=== PATIENT | male | born 1990 | race African-American/Black ===

== ENCOUNTER 2016-11-18 13:00 | Emergency (ER) | payer OTHER ==
[~2016-11-18] VITALS: Ht 195.6 cm; Wt 90.0 kg
[2016-11-18 13:06] VITALS: Ht 195.6 cm; Wt 90.0 kg
== END 2016-11-18 16:07 | disposition left against medical advice (07) ==
LOC: FTE 13:00
DX: Z53.21 Procedure and treatment not carried out due to patient leaving prior to being seen by health care provider (principal)

== ENCOUNTER 2017-05-21 16:53 | Emergency (ER) | payer OTHER ==
[~2017-05-21] VITALS: Ht 198.1 cm
[2017-05-21 16:55] VITALS: Ht 198.1 cm
[2017-05-21] MEDS ORDERED: IBUP-1542 PO (17:50)
[2017-05-21] MEDS ORDERED: CYCL-319 PO (17:50)
--- NOTE | 2017-05-21 20:56 | ERD ---
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 Patient states the pain is 8 out of 10 with movement. Patient denies taking any medications for this. He denies any numbness or tingling. ROS All systems reviewed and are negative except as per history of present illness. Medications Home Meds Active Scripts Cyclobenzaprine Hcl* (Cyclobenzaprine Hcl*) 10 Mg Tablet, 10 MG PO TID, #15 TAB Prov:DEMOND ADAME PA-C 05/21/17 Ibuprofen* (Ibuprofen*) 600 Mg Tablet, 600 MG PO Q6H Y for PAIN AND OR ELEVATED TEMP, #30 TAB Prov:DEMOND ADAME PA-C 05/21/17 Allergies Allergies: Coded Allergies: No Known Drug Allergies (Verified Allergy, 09/19/12) PMhx/Soc Medical and Surgical Hx: pt denies Medical Hx, pt denies Surgical Hx History of Surgery: No Anesthesia Reaction: No Hx Neurological Disorder: No Hx Respiratory Disorders: No Hx Cardiac Disorders: No Hx Psychiatric Problems: No Hx Miscellaneous Medical Probl: No Hx Alcohol Use: No Hx Substance Use: Yes (marijuana) Hx Tobacco Use: No Smoking Status: Never smoker Physical Exam Vitals Vital Signs Date Time Temp Pulse Resp B/P Pulse Ox O2 Delivery O2 Flow Rate FiO2 05/21/17 16:55 98.4 69 16 118/67 97 Physical Exam GENERAL: WD/WN, in no apparent distress, non-toxic appearing HENT: NC/AT EYES: Conjunctiva normal NECK: Supple, no masses felt, tender to palpation of the paraspinal muscle, non- tender to palpation on cervical spine midline, full range of motion PULM: Normal labored breathing CV: Good capillary refill GI: Non-distended, no guarding BACK: no deformities noted, normal spinal curvature EXT: No clubbing, cyanosis, or edema NEURO: Moves on all fours, sensation intact, normal gait SKIN: intact PSYCH: Normal mood Procedures/MDM 26-year-old sent to the emergency department complaining of left lateral neck pain status post lifting a heavy patient at work about 1 week prior to being seen. This is likely a strain. There was no evidence of vertebral fracture or subluxation. Patient has full range of motion of his neck. He is tender to palpation in the paraspinal muscle of the left side. Patient is neurovascular intact to be discharged home to follow with primary care physician. Prescription for ibuprofen and Flexeril was provided. Discussed return to ER for worsening signs or symptoms. He understands and agrees with this plan Departure Diagnosis: Primary Impression: Neck pain Condition: Stable Patient Instructions: Neck Pain, No Trauma Additional Instructions: FOLLOW UP WITH YOUR PRIMARY CARE PHYSICIAN TOMORROW.Return to this facility if you are not improving as expected. Take all medicines as directed. You have been given a medicine which may cause drowsiness.DO NOT DRIVE OR OPERATE DANGEROUS MACHINERY while taking this medicine! DEMOND ADAME PA-C May 21, 2017 20:56
== END 2017-05-21 18:30 | disposition home or self-care (01) ==
LOC: FTE 16:53
DX: M54.2 Cervicalgia (principal)
CPT/HCPCS: 99283

== ENCOUNTER 2017-07-24 16:19 | Emergency (ER) | payer OTHER ==
[~2017-07-24] VITALS: Wt 93.0 kg
[~2017-07-24 16:19] MED LIST: CYCL-319 PO; IBUP-1542 PO
[2017-07-24] MEDS ORDERED: CETI10CA PO (17:32)
[2017-07-24] MEDS ORDERED: BENZ100C70 PO (17:32)
[2017-07-24] MEDS ORDERED: IBUP-1542 PO (17:32)
[2017-07-24] MEDS ORDERED: FLUT9.9S NASAL (17:32)
--- NOTE | 2017-07-24 17:49 | ERD ---
ER Documentation Chief Complaint Chief Complaint cough, sinus congestion, eyes watery, frontal mahmood HPI 27-year-old male presents with a cough, congestion, watery eyes and frontal headache for the past 1-2 days. He reports tactile fevers and he has been taking DayQuil for his symptoms. The patient's pain is pressure-like in the frontal aspect. The cough is been dry, denies hemoptysis, chest pain or shortness of breath. He denies recent travel. ROS All systems reviewed and are negative except as per history of present illness. Medications Home Meds Active Scripts Cetirizine Hcl* (Zyrtec*) 10 Mg Capsule, 10 MG PO DAILY, #10 TAB.CHEW Prov:EDMAR CARCAMO PA-C 07/24/17 Fluticasone Propionate (Flonase Allergy Relief) 9.9 Ml [place].susp, 1 SPRAY NASAL BID, #1 BOTTLE TO EACH NOSTRIL Prov:EDMAR CARCAMO PA-C 07/24/17 Ibuprofen* (Motrin*) 600 Mg Tab, 600 MG PO Q6, #30 TAB Prov:EDMAR CARCAMO PA-C 07/24/17 Benzonatate* (Tessalon Perle*) 100 Mg Capsule, 100 MG PO Q8H Y for COUGH, #30 CAP Prov:EDMAR CARCAMO PA-C 07/24/17 Cyclobenzaprine Hcl* (Cyclobenzaprine Hcl*) 10 Mg Tablet, 10 MG PO TID, #15 TAB Prov:DEMOND ADAME PA-C 05/21/17 Ibuprofen* (Ibuprofen*) 600 Mg Tablet, 600 MG PO Q6H Y for PAIN AND OR ELEVATED TEMP, #30 TAB Prov:DEMOND ADAME PA-C 05/21/17 Allergies Allergies: Coded Allergies: No Known Drug Allergies (Verified Allergy, 09/19/12) PMhx/Soc History of Surgery: No Anesthesia Reaction: No Hx Neurological Disorder: No Hx Respiratory Disorders: No Hx Cardiac Disorders: No Hx Psychiatric Problems: No Hx Miscellaneous Medical Probl: No Hx Alcohol Use: No Hx Substance Use: Yes (marijuana) Hx Tobacco Use: No Physical Exam Vitals Vital Signs Date Time Temp Pulse Resp B/P Pulse Ox O2 Delivery O2 Flow Rate FiO2 07/24/17 16:43 98.5 75 20 134/82 98 Physical Exam General: Well-developed, well-nourished. The patient appears in no acute distress. HEENT: Head is normocephalic, atraumatic. No scleral icterus. TMs are normal, oropharynx is sinuses are nontender. Neck: Supple. Nontender. Lungs: Clear to auscultation. Normal air movement. Heart: Regular rate and rhythm. S1 and S2 are normal. No murmurs, gallops, or rubs. Abdomen: Nondistended. Extremities: No clubbing or cyanosis. Moving extremities x 4. No weakness. Neurologic: Alert and oriented 3. No focal deficits. Normal speech and gait. Skin: Normal turgor. No rash or lesions. Procedures/MDM The patient is a 27-year-old male who comes in with an acute upper respiratory infection, presumed viral. The patient has a differential diagnosis of a viral upper respiratory infection, bacterial upper respiratory infection, bronchitis, pneumonia, pharyngitis, laryngitis, epiglottitis, croup, pneumonia. Patient has a normal pulmonary examination, clear breath sounds, normal pulse oximetry, with no corrective measures needed at this time. Fluids, rest, antipyretics were encouraged. Departure Diagnosis: Primary Impression: Cough Condition: Good Patient Instructions: Uri, Viral, No Abx (Adult) EDMAR CARCAMO PA-C Jul 24, 2017 17:49
== END 2017-07-24 17:54 | disposition home or self-care (01) ==
LOC: FTE 16:19
DX: R05 Cough (principal)
CPT/HCPCS: 99283

== ENCOUNTER 2017-11-14 14:46 | Emergency (ER) | END 2017-11-14 16:44 | disposition home or self-care (01) ==

== ENCOUNTER 2017-12-10 12:49 | Emergency (ER) | END 2017-12-10 14:17 | disposition home or self-care (01) ==

== ENCOUNTER 2018-01-07 16:24 | Emergency (ER) | END 2018-01-07 16:55 | disposition home or self-care (01) ==

== ENCOUNTER 2018-09-17 16:37 | Emergency (ER) | payer SELFPAY ==
[~2018-09-17] VITALS: Ht 167.6 cm; Wt 98.2 kg
[~2018-09-17 16:37] MED LIST changes: +ALBU18HF INHALATION; +BEN25 PO; +BENZ-6 PO; +CETI10CA PO; -CYCL-319 PO; +CYCL10TA7 PO; +FLUT9.9S NASAL; +KETO5DRO79 BOTH EYES; +LORA-186 PO; +LORA1TAB54 PO
[2018-09-17 17:01] VITALS: Ht 167.6 cm; Wt 98.2 kg
== END 2018-09-17 18:56 | disposition left against medical advice (07) ==
LOC: FTE 16:37
DX: Z53.21 Procedure and treatment not carried out due to patient leaving prior to being seen by health care provider (principal)

== ENCOUNTER 2018-09-20 22:15 | Emergency (ER) | payer OTHER ==
[~2018-09-20] VITALS: Wt 96.2 kg
[2018-09-21] MEDS ORDERED: CEPH-443 PO (01:51)
[2018-09-21] MEDS ORDERED: SULF1TAB31 PO (01:51)
[2018-09-21 02:11] VITALS: BP 124/84; PULSE 108; RESP 18
--- NOTE | 2018-09-21 02:17 | ERD ---
ER Documentation Chief Complaint Chief Complaint RLQ PAIN WITH PAINFUL "LUMP" NOTED AFTER STRENUOUS ACTIVITY HPI 28-year-old male presenting with a lump to his right inguinal region times 3 days. He states is mild pain but nothing severe. Normal urination bowel movement. No fevers. Denies dysuria denies history of STDs. No discharge from the penis. Has not taken medications for symptoms. Denies abdominal pain. Denies medical problems. NKDA. Surgical history denies. Social history denies. ROS All systems reviewed and are negative except as per history of present illness. Medications Home Meds Active Scripts Cephalexin* (Keflex*) 500 Mg Capsule, 500 MG PO QID for 7 Days, #28 CAP Prov:PENNY RAMÍREZ PA-C 09/21/18 Sulfamethoxazole/Trimethoprim* (Bactrim Ds* Tablet) 1 Each Tablet, 1 TAB PO BID, #14 TAB Prov:PENNY RAMÍREZ PA-C 09/21/18 Diphenhydramine Hcl* (Benadryl*) 25 Mg Cap, 25 MG PO Q6, #30 CAP Prov:DAVID JACOB PA-C 01/07/18 Loratadine* (Claritin*) 10 Mg Tablet, 10 MG PO DAILY, #30 TAB Prov:DAVID JACOB PA-C 01/07/18 Fluticasone Propionate (Flonase Allergy Relief) 9.9 Ml [place].susp, 1 SPRAY NASAL BID, #1 BOTTLE TO EACH NOSTRIL Prov:EDMAR CARCAMO PA-C 12/10/17 Cetirizine Hcl* (Zyrtec*) 10 Mg Capsule, 10 MG PO DAILY, #30 TAB Prov:EDMAR CARCAMO PA-C 12/10/17 Ketorolac Tromethamine Oph (Ketorolac Tromethamine Oph) 0.4%-5 Ml Opht Drops, 1 DROP BOTH EYES QID, #1 EA Prov:EDMAR CARCAMO PA-C 12/10/17 Albuterol Sulfate* (Ventolin HFA*) 18 Gm Hfa.aer.ad, 2 PUFF INHALATION Q4H, #1 INHALER Prov:AYUSH,CARSON 11/14/17 Fluticasone Propionate (Flonase Allergy Relief) 9.9 Ml [place].susp, 1 SPRAY NASAL DAILY, #1 BOTTLE TO EACH NOSTRIL Prov:AYUSH,CARSON 11/14/17 Fluticasone Propionate (Flonase Allergy Relief) 9.9 Ml [place].susp, 1 SPRAY NASAL BID, #1 BOTTLE TO EACH NOSTRIL Prov:AYUSH,CARSON 11/14/17 Loratadine/Pseudoephedrine* (Claritin-D* 12 Hr) 5-120 Mg Tab.er.12h, 1 TAB PO Qday , #15 TAB.SA Prov:AYUSH,CARSON 11/14/17 Cetirizine Hcl* (Zyrtec*) 10 Mg Capsule, 10 MG PO DAILY, #10 TAB.CHEW Prov:EDMAR CARCAMO PA-C 07/24/17 Fluticasone Propionate (Flonase Allergy Relief) 9.9 Ml [place].susp, 1 SPRAY NASAL BID, #1 BOTTLE TO EACH NOSTRIL Prov:EDMAR CARCAMO PA-C 07/24/17 Ibuprofen* (Motrin*) 600 Mg Tab, 600 MG PO Q6, #30 TAB Prov:EDMAR CARCAMO PA-C 07/24/17 Benzonatate* (Tessalon Perle*) 100 Mg Capsule, 100 MG PO Q8H PRN for COUGH, #30 CAP Prov:EDMAR CARCAMO PA-C 07/24/17 Cyclobenzaprine Hcl* (Cyclobenzaprine Hcl*) 10 Mg Tablet, 10 MG PO TID, #15 TAB Prov:DEMOND ADAME PA-C 05/21/17 Ibuprofen* (Ibuprofen*) 600 Mg Tablet, 600 MG PO Q6H PRN for PAIN AND OR ELEVATED TEMP, #30 TAB Prov:DEMOND ADAME PA-C 05/21/17 Allergies Allergies: Coded Allergies: No Known Drug Allergies (Verified Allergy, 09/19/12) PMhx/Soc Medical and Surgical Hx: pt denies Medical Hx, pt denies Surgical Hx History of Surgery: No Anesthesia Reaction: No Hx Neurological Disorder: No Hx Respiratory Disorders: No Hx Cardiac Disorders: No Hx Psychiatric Problems: No Hx Miscellaneous Medical Probl: No Hx Alcohol Use: Yes (socially) Hx Substance Use: Yes (marijuana) Hx Tobacco Use: No Smoking Status: Never smoker FmHx Family History: No diabetes, No coronary disease, No other Physical Exam Vitals Vital Signs Date Temp Pulse Resp B/P (MAP) Pulse Ox O2 O2 Flow FiO2 Time Delivery Rate 09/21/18 98.6 108 18 124/84 99 Room Air 02:11 (97) 09/20/18 97.0 92 18 172/81 98 22:20 (111) Physical Exam GENERAL: The patient is well-appearing, well-nourished, in no acute distress CHEST: Clear to auscultation bilaterally. There are no rales, wheezes or rhonchi. HEART: Regular rate and rhythm. No murmurs, clicks, rubs or gallops. No S3 or S4. ABDOMEN:Soft, nontender and nondistended. Good bowel sounds. No rebound or guarding. No gross peritonitis. No gross organomegaly or masses. No Mckeon sign or McBurney point tenderness. SKIN: Indurated mass noted to right inguinal region with no fluctuance. No lymphatic streaking. Results 24 hrs Laboratory Tests Test 09/21/18 01:02 Bedside Urine pH (LAB) 7.0 Bedside Urine Protein (LAB) Trace Bedside Urine Glucose (UA) Negative Bedside Urine Ketones (LAB) Negative Bedside Urine Blood Trace-intact Bedside Urine Nitrite (LAB) Negative Bedside Urine Leukocyte Esterase (L Negative Procedures/MDM ER course: STD screening sent. MDM: 28-year-old male presenting with inguinal lymphadenopathy. Patient likely has reactive lymphadenopathy however will treat with antibiotics to prophylax against infection. I have low suspicion for abscess formation. Patient is discharged with antibiotics and recommended to apply warm compresses. He is told to return in 2 days after applying warm compresses as incision and drainage may be required. Patient is told if symptoms change or worsen prior to the 2 days to return to ER sooner. Patient is discharged with strict ER precautions and also recommended to follow-up with primary care. All questions answered at discharge Departure Diagnosis: Primary Impression: Lymphadenopathy Condition: Stable Patient Instructions: When Your Child Has Swollen Lymph Nodes Referrals: [facility] YOU HAVE RECEIVED A MEDICAL SCREENING EXAM AND THE RESULTS INDICATE THAT YOU DO NOT HAVE A CONDITION THAT REQUIRES URGENT TREATMENT IN THE EMERGENCY DEPARTMENT. FURTHER EVALUATION AND TREATMENT OF YOUR CONDITION CAN WAIT UNTIL YOU ARE SEEN IN YOUR DOCTORS OFFICE WITHIN THE NEXT 1-2 DAYS. IT IS YOUR RESPONSIBILITY TO MAKE AN APPOINTMENT FOR FOLOW-UP CARE. IF YOU HAVE A PRIMARY DOCTOR --you should call your primary doctor and schedule an appointment IF YOU DO NOT HAVE A PRIMARY DOCTOR YOU CAN CALL OUR PHYSICIAN REFERRAL HOTLINE AT IF YOU CAN NOT AFFORD TO SEE A PHYSICIAN YOU CAN CHOSE FROM THE FOLLOWING [facility] CL[facility]ICS [facility] [address] [facility] [address] [facility] [address] [facility] [address] [facility] [address] [facility] [address] [facility]. [address] Additional Instructions: FOLLOW UP WITH YOUR PRIMARY CARE PHYSICIAN TOMORROW.Return to this facility if you are not improving as expected. PENNY RAMÍREZ PA-C Sep 21, 2018 02:17
== END 2018-09-21 02:11 | disposition home or self-care (01) ==
LOC: FTE 22:15
DX: R59.0 Localized enlarged lymph nodes (principal)
CPT/HCPCS: 81003; 87591; Z7502; 99283

== ENCOUNTER 2018-12-27 11:33 | Emergency (ER) | payer OTHER ==
[~2018-12-27] VITALS: Ht 195.6 cm; Wt 101.0 kg
[~2018-12-27 11:33] MED LIST changes: +CEPH-443 PO; +SULF1TAB31 PO
[2018-12-27 12:24] VITALS: BP 125/81; PULSE 56; RESP 16; Ht 195.6 cm; Wt 101.0 kg
[2018-12-27] MEDS ORDERED: CEPH-443 PO (12:49)
--- NOTE | 2018-12-27 12:59 | ERD ---
ER Documentation Chief Complaint Chief Complaint RT FOOT PAIN WITH SWELLING HPI 28-year-old male presenting with pain to his right foot. Patient was walking yesterday and noticed he site of erythema and tenderness between his great toe and second toe of the right foot. Denies other medical problems. NKDA. Surgic al history denies. Social history denies ROS All systems reviewed and are negative except as per history of present illness. Medications Home Meds Active Scripts Cephalexin* (Keflex*) 500 Mg Capsule, 500 MG PO QID for 7 Days, CAP Prov:PENNY RAMÍREZ PA-C 12/27/18 Cephalexin* (Keflex*) 500 Mg Capsule, 500 MG PO QID for 7 Days, #28 CAP Prov:PENNY RAMÍREZ PA-C 09/21/18 Sulfamethoxazole/Trimethoprim* (Bactrim Ds* Tablet) 1 Each Tablet, 1 TAB PO BID, #14 TAB Prov:PENNY RAMÍREZ PA-C 09/21/18 Diphenhydramine Hcl* (Benadryl*) 25 Mg Cap, 25 MG PO Q6, #30 CAP Prov:DAVID JACOB PA-C 01/07/18 Loratadine* (Claritin*) 10 Mg Tablet, 10 MG PO DAILY, #30 TAB Prov:DAVID JACOB PA-C 01/07/18 Fluticasone Propionate (Flonase Allergy Relief) 9.9 Ml [place].susp, 1 SPRAY NASAL BID, #1 BOTTLE TO EACH NOSTRIL Prov:EDMAR CARCAMO PA-C 12/10/17 Cetirizine Hcl* (Zyrtec*) 10 Mg Capsule, 10 MG PO DAILY, #30 TAB Prov:EDMAR CARCAMO PA-C 12/10/17 Ketorolac Tromethamine Oph (Ketorolac Tromethamine Oph) 0.4%-5 Ml Opht Drops, 1 DROP BOTH EYES QID, #1 EA Prov:EDMAR CARCAMO PA-C 12/10/17 Albuterol Sulfate* (Ventolin HFA*) 18 Gm Hfa.aer.ad, 2 PUFF INHALATION Q4H, #1 INHALER Prov:AYUSHKATRINACARSON 11/14/17 Fluticasone Propionate (Flonase Allergy Relief) 9.9 Ml [place].susp, 1 SPRAY NASAL DAILY, #1 BOTTLE TO EACH NOSTRIL Prov:AYUSH,CARSON 11/14/17 Fluticasone Propionate (Flonase Allergy Relief) 9.9 Ml [place].susp, 1 SPRAY NASAL BID, #1 BOTTLE TO EACH NOSTRIL Prov:AYUSH,CARSON 11/14/17 Loratadine/Pseudoephedrine* (Claritin-D* 12 Hr) 5-120 Mg Tab.er.12h, 1 TAB PO Qday , #15 TAB.SA Prov:AYUSH,CARSON 11/14/17 Cetirizine Hcl* (Zyrtec*) 10 Mg Capsule, 10 MG PO DAILY, #10 TAB.CHEW Prov:EDMAR CARCAMO PA-C 07/24/17 Fluticasone Propionate (Flonase Allergy Relief) 9.9 Ml [place].susp, 1 SPRAY NASAL BID, #1 BOTTLE TO EACH NOSTRIL Prov:EDMAR CARCAMO PA-C 07/24/17 Ibuprofen* (Motrin*) 600 Mg Tab, 600 MG PO Q6, #30 TAB Prov:EDMAR CARCAMO PA-C 07/24/17 Benzonatate* (Tessalon Perle*) 100 Mg Capsule, 100 MG PO Q8H PRN for COUGH, #30 CAP Prov:EDMAR CARCAMO PA-C 07/24/17 Cyclobenzaprine Hcl* (Cyclobenzaprine Hcl*) 10 Mg Tablet, 10 MG PO TID, #15 TAB Prov:DEMOND ADAME PA-C 05/21/17 Ibuprofen* (Ibuprofen*) 600 Mg Tablet, 600 MG PO Q6H PRN for PAIN AND OR ELEVATED TEMP, #30 TAB Prov:DEMOND ADAME PA-C 05/21/17 Allergies Allergies: Coded Allergies: No Known Drug Allergies (Verified Allergy, 09/19/12) PMhx/Soc History of Surgery: No Anesthesia Reaction: No Hx Neurological Disorder: No Hx Respiratory Disorders: No Hx Cardiac Disorders: No Hx Psychiatric Problems: No Hx Miscellaneous Medical Probl: No Hx Alcohol Use: Yes (socially) Hx Substance Use: Yes (marijuana) Hx Tobacco Use: No FmHx Family History: No diabetes, No coronary disease, No other Physical Exam Vitals Vital Signs Date Temp Pulse Resp B/P (MAP) Pulse Ox O2 O2 Flow FiO2 Time Delivery Rate 12/27/18 97.5 56 16 125/81 100 12:24 (96) Physical Exam GENERAL: The patient is well-appearing, well-nourished, in no acute distress CHEST: Clear to auscultation bilaterally. There are no rales, wheezes or rhonchi. HEART: Regular rate and rhythm. No murmurs, clicks, rubs or gallops. EXTREMITIES: Equal pulses bilaterally. There is no peripheral clubbing, cyanosis or edema. No focal swelling or erythema. Full range of motion. Grossly neurovascularly intact. NEUROLOGIC: Alert and oriented. Cranial nerves II through XII intact. Motor strength in all 4 extremities with 5 out of 5 strength. Sensation grossly intact. Normal speech and gait. SKIN: Fluctuant erythematous mass noted between the first and second toe. No lymphatic streaking. Procedures/MDM MDM: 28-year-old male presenting with what appears to be a blister between the first and second toe. Patient may have some underlying erythema and infection I will treat prophylactically with antibiotics. Patient is told to clean with soap and water. I decided not to open the blister to prevent further infection. All questions answered discharge Departure Diagnosis: Primary Impression: Injury of foot Condition: Stable Patient Instructions: Blister [facility]errals: [facility] YOU HAVE RECEIVED A MEDICAL SCREENING EXAM AND THE RESULTS INDICATE THAT YOU DO NOT HAVE A CONDITION THAT REQUIRES URGENT TREATMENT IN THE EMERGENCY DEPARTMENT. FURTHER EVALUATION AND TREATMENT OF YOUR CONDITION CAN WAIT UNTIL YOU ARE SEEN IN YOUR DOCTORS OFFICE WITHIN THE NEXT 1-2 DAYS. IT IS YOUR RESPONSIBILITY TO MAKE AN APPOINTMENT FOR FOLOW-UP CARE. IF YOU HAVE A PRIMARY DOCTOR --you should call your primary doctor and schedule an appointment IF YOU DO NOT HAVE A PRIMARY DOCTOR YOU CAN CALL OUR PHYSICIAN REFERRAL HOTLINE AT IF YOU CAN NOT AFFORD TO SEE A PHYSICIAN YOU CAN CHOSE FROM THE FOLLOWING [facility] [address] [facility]. [facility] [address] [facility] [address] [facility] [address] [facility]. [facility] [address] [facility]. [facility] [address] Additional Instructions: FOLLOW UP WITH YOUR PRIMARY CARE PHYSICIAN TOMORROW.Return to this facility if you are not improving as expected. PENNY RAMÍREZ PA-C Dec 27, 2018 12:59
== END 2018-12-27 13:05 | disposition home or self-care (01) ==
LOC: FTE 11:33
DX: S99.921A Unspecified injury of right foot, initial encounter (principal); X58.XXXA Exposure to other specified factors, initial encounter; Y92.9 Unspecified place or not applicable
CPT/HCPCS: 99283

== ENCOUNTER 2019-07-15 11:27 | Emergency (ER) | payer OTHER ==
[~2019-07-15] VITALS: Wt 100.6 kg
[~2019-07-15 11:27] MED LIST changes: +ERYT1OIN6 LEFT EYE
[2019-07-15 12:14] VITALS: BP 133/88; PULSE 64; RESP 20
== END 2019-07-15 14:45 | disposition home or self-care (01) ==
LOC: FTE 11:27
DX: H10.32 Unspecified acute conjunctivitis, left eye (principal)
CPT/HCPCS: 99283